=== PATIENT | female | born 1990 | race Caucasian/White ===

== ENCOUNTER 2024-05-17 00:49 | Emergency (ER) | payer OTHER ==
[2024-05-17 00:57] VITALS: RESP 16; BMI 48.6
[2024-05-17] MEDS ORDERED: ONDANSETRON *ODT* 4 MG TABLET ONE (00:58)
[2024-05-17] MEDS: ONDANSETRON *ODT* 4 MG TABLET SL ONE (00:59)
[2024-05-17 01:26] VITALS: BP 100/68; PULSE 83; TEMP 97.9
== END 2024-05-17 01:32 | disposition home or self-care (01) ==
LOC: FER 00:49
DX: F10.929 Alcohol use, unspecified with intoxication, unspecified (principal); Y90.9 Presence of alcohol in blood, level not specified; R42 Dizziness and giddiness; R11.2 Nausea with vomiting, unspecified
CPT/HCPCS: 99283-25; Q0162